=== PATIENT | male | born 1990 | race American Indian/Alaskan Native ===

== ENCOUNTER 2017-01-26 13:13 | Emergency (ER) | payer MEDICAID ==
[~2017-01-26] VITALS: Wt 94.8 kg
[2017-01-26] MEDS ORDERED: IBUP-1542 PO (13:34)
[2017-01-26] MEDS ORDERED: AMOX500C2 PO (13:34)
--- NOTE | 2017-01-26 14:45 | ERD ---
ER Documentation Chief Complaint Chief Complaint sore throat cough x1.5months HPI Patient is a 26-year-old male with no medical problems who presents with sore throat. The patient said that for 1-1/2 months he has not been feeling well. He has had shortness of breath, fever, and cough. He has sore throat as well. He says "I think it might be my tonsils". He is speaking in full sentences. He tried "some med" but does not know what it was. He does not currently have a primary doctor. ROS All systems reviewed and are negative except as per history of present illness. Medications Home Meds Active Scripts Ibuprofen* (Motrin*) 600 Mg Tab, 600 MG PO Q6H Y for PAIN AND OR ELEVATED TEMP, #30 TAB Prov:CULLEN SEALS MD 01/26/17 Amoxicillin* (Amoxicillin*) 500 Mg Cap, 1000 MG PO BID for 10 Days, CAP Prov:CULLEN SEALS MD 01/26/17 Allergies Allergies: Coded Allergies: No Known Allergy (Unverified , 01/26/17) PMhx/Soc Medical and Surgical Hx: pt denies Medical Hx, pt denies Surgical Hx Hx Alcohol Use: No Hx Substance Use: No Hx Tobacco Use: No Smoking Status: Never smoker FmHx Family History: No diabetes Physical Exam Vitals Vital Signs Date Time Temp Pulse Resp B/P Pulse Ox O2 Delivery O2 Flow Rate FiO2 01/26/17 13:15 98.1 81 18 146/87 98 Physical Exam Const: No acute distress Head: Atraumatic Eyes: Normal Conjunctiva ENT: Erythematous tonsils bilaterally without signs of peritonsillar abscess , no stridor over the neck Neck: Full range of motion..~ No meningismus. Resp: Clear to auscultation bilaterally Cardio: Regular rate and rhythm, no murmurs Abd: Soft, non tender, non distended. Normal bowel sounds Skin: No petechiae or rashes Back: No midline or flank tenderness Ext: No cyanosis, or edema Neur: Awake and alert Psych: Normal Mood and Affect Procedures/MDM Patient is a 26-year-old male who presents with what appears to be an acute pharyngitis. At this point there is no sign of peritonsillar abscess and I doubt retropharyngeal abscess or epiglottitis. The patient is well-appearing. While this could be viral given the length of symptoms of 1.5 months I will treat him with a course of amoxicillin for 10 days. The patient will be given ibuprofen for systematic relief as well. The patient does not require further workup or admission to the hospital at this time. He can return for any worsening symptoms. Departure Diagnosis: Primary Impression: Pharyngitis Pharyngitis/tonsillitis etiology: unspecified etiology Qualified Code: J02.9 - Pharyngitis, unspecified etiology Condition: Fair Patient Instructions: Pharyngitis, Strep (Presumed) Referrals: [facility] YOU HAVE RECEIVED A MEDICAL SCREENING EXAM AND THE RESULTS INDICATE THAT YOU DO NOT HAVE A CONDITION THAT REQUIRES URGENT TREATMENT IN THE EMERGENCY DEPARTMENT. FURTHER EVALUATION AND TREATMENT OF YOUR CONDITION CAN WAIT UNTIL YOU ARE SEEN IN YOUR DOCTORS OFFICE WITHIN THE NEXT 1-2 DAYS. IT IS YOUR RESPONSIBILITY TO MAKE AN APPOINTMENT FOR FOLOW-UP CARE. IF YOU HAVE A PRIMARY DOCTOR --you should call your primary doctor and schedule an appointment IF YOU DO NOT HAVE A PRIMARY DOCTOR YOU CAN CALL OUR PHYSICIAN REFERRAL HOTLINE AT IF YOU CAN NOT AFFORD TO SEE A PHYSICIAN YOU CAN CHOSE FROM THE FOLLOWING [facility] [address] [facility]. [facility] [address] [facility] [facility] [address] [facility] [facility] [address] [facility] [address] [facility] [facility] [address] Additional Instructions: Call your primary care doctor TOMORROW for an appointment during the next 1 WEEK.Tell the junior legal secretary that you were referred from this facility.See the doctor sooner or return here if your condition worsens before your appointment time. CULLEN SEALS MD Jan 26, 2017 14:45
== END 2017-01-26 14:40 | disposition home or self-care (01) ==
LOC: E/R 13:13
DX: J02.9 Acute pharyngitis, unspecified (principal)
CPT/HCPCS: 99283